=== PATIENT | male | born 1965 | race Caucasian/White ===

== ENCOUNTER 2022-08-26 04:31 | Emergency (ER) | payer OTHER ==
[~2022-08-26] VITALS: Ht 175.3 cm; Wt 73.0 kg
[2022-08-26 04:32] VITALS: O2SAT 99
[2022-08-26] MEDS ORDERED: LORAZEPAM 2MG/ML CPJ IV ONE (05:30)
[2022-08-26] MEDS ORDERED: SODIUM CHLORIDE 0.9% 1,000 ML IV ONE (05:30)
[2022-08-26 05:51] LABS: CHLORIDE 104 mEq/L (98-107)
[2022-08-26 06:25] LABS: HEMATOCRIT. 42.1 % (42.0-52.0); HEMOGLOBIN. 15.1 g/dL (14.0-18.0); MEAN CORPUSCULAR HEMOGLOBIN 31.9 pg (28.0-32.0); MEAN CORPUSCULAR VOLUME 89.3 fL (80.0-94.0); RED BLOOD CELL COUNT 4.71 mill/uL (4.7-6.1); RED CELL DISTRIBUTION WIDTH 13.2 % (11.6-14.6)
[2022-08-26 06:30] LABS: CLARITY URINE CLOUDY (CLEAR); COLOR URINE DARK YELLOW (YELLOW); KETONES URINE TRACE (NEGATIVE); LEUKOCYTE ESTERASE URINE TRACE (NEGATIVE); NITRITE URINE NEGATIVE (NEGATIVE); OCCULT BLOOD URINE 3+ (NEGATIVE); PROTEIN URINE 3+ (NEGATIVE); SPECIFIC GRAVITY URINE 1.023 (1.005-1.030)
[2022-08-26 06:45] LABS: *AMPHETAMINES SCREEN URINE NEGATIVE (NEGATIVE); *BARBITURATES SCREEN URINE NEGATIVE (NEGATIVE); *BENZODIAZEPINES SCREEN URINE NEGATIVE (NEGATIVE); *COCAINE SCREEN URINE NEGATIVE (NEGATIVE); CANNABINOID URINE SCREEN NEGATIVE (NEGATIVE); METHADONE URINE SCREEN NEGATIVE (NEGATIVE); OPIATES URINE SCREEN NEGATIVE (NEGATIVE); PHENCYCLIDINE URINE SCREEN NEGATIVE (NEGATIVE)
[2022-08-26 06:55] VITALS: BP 135/82; PULSE 110; RESP 25; TEMP 100.1
[2022-08-26 07:02] LABS: PLATELET 218 x1000/uL (130-400); PLATELET ESTIMATE NORMAL
[2022-08-26] MEDS ORDERED: DEXTL MT ×2 (09:25)
[2022-08-26] MEDS ORDERED: ALBU6.7H3 INH ×2 (09:25)
[2022-08-26] MEDS ORDERED: P50 PO ×2 (09:25)
[2022-08-26] MEDS ORDERED: AZIT250T12 MT ×2 (09:25)
[2022-08-26] MEDS ORDERED: LEVO-65 MT (11:41)
[2022-08-26] MEDS ORDERED: ONDA4TAB11 PO (11:41)
== END 2022-08-26 11:56 | disposition home or self-care (01) ==
LOC: ER 04:31
DX: K52.9 Noninfective gastroenteritis and colitis, unspecified (principal); D72.825 Bandemia; F03.90 Unspecified dementia, unspecified severity, without behavioral disturbance, psychotic disturbance, mood disturbance, and anxiety
CPT/HCPCS: 36415; 71045; 80053; 80305; 81003; 82962; 83690; 84484; 85025; 93005; 96361; 96374; 99285; J2060; J7030; Z7610